=== PATIENT | male | born 1995 | race Caucasian/White ===

== ENCOUNTER 2018-11-21 00:54 | Emergency (ER) | payer SELFPAY ==
[2018-11-21 00:54] VITALS: BMI 20.1
[2018-11-21] MEDS ORDERED: cefTRIAXone (Rocephin) 250 mg Inj IM STA (01:32)
--- NOTE | 2018-11-21 01:47 | ED PDOC ---
Arrival/HPI - General Chief Complaint: Male Genitourinary Time Seen by Provider: 11/21/18 01:00 Historian: Patient - History of Present Illness Narrative History of Present Illness (Text): 11/21/18 03:13 23-year-old male presents today with penile discharge. Patient states he noticed a white discharge coming from the penis and in his underwear. Patient admits history of unprotected sex. He denies chest pain or shortness of breath. No abdominal pain. No testicular pain. He denies dysuria. No fevers or chills. No other complaints Past Medical History - Provider Review Nursing Documentation Reviewed: Yes - Travel History Have you recently traveled outside [place] w/in the past 3 mons?: No - Past History Past History: No Previous - Infectious Disease Hx of Infectious Diseases: None - Tetanus Immunization Tetanus Immunization: Up to Date - Psychiatric Hx Substance Use: No - Past Surgical History Past Surgical History: No Previous - Anesthesia Hx Anesthesia: No Hx Anesthesia Reactions: No Hx Malignant Hyperthermia: No - Suicidal Assessment Feels Threatened In Home Enviroment: No Family/Social History - Physician Review Nursing Documentation Reviewed: Yes Family/Social History: Unknown Family HX Smoking Status: Never Smoked Hx Alcohol Use: No Hx Substance Use: No Hx Substance Use Treatment: No Allergies/Home Meds Allergies/Adverse Reactions: Allergies No Known Allergies Allergy (Verified 11/21/18 01:18) Home Medications: Home Meds Medication Instructions Recorded Confirmed No Known Home Med 11/21/18 11/21/18 Review of Systems - Review of Systems Constitutional: absent: Fatigue, Fevers Respiratory: absent: SOB, Cough Cardiovascular: absent: Chest Pain, Palpitations Gastrointestinal: absent: Abdominal Pain, Nausea, Vomiting Genitourinary Male: Other (Penile discharge). absent: Dysuria, Frequency, Hematuria Musculoskeletal: absent: Arthralgias, Back Pain, Neck Pain Skin: absent: Rash, Pruritis Neurological: absent: Headache, Dizziness Psychiatric: absent: Anxiety, Depression Physical Exam Vital Signs Reviewed: Yes Temperature: Afebrile Blood Pressure: Normal Pulse: Regular Respiratory Rate: Normal Appearance: Positive for: Well-Appearing, Non-Toxic, Comfortable Pain Distress: None Mental Status: Positive for: Alert and Oriented X 3 - Systems Exam Head: Present: Atraumatic Mouth: Present: Moist Mucous Membranes Neck: Present: Normal Range of Motion Respiratory/Chest: Present: Clear to Auscultation Cardiovascular: Present: Regular Rate and Rhythm Abdomen: No: Tenderness, Distention, Rebound, Guarding Genitourinary Male: Present: Normal External Genitalia, Circumcised Penis, Penile Discharge (White discharge noted), Other (Chaperoned by [employer] Cornelio). No: Lesions, Testicle Tenderness, Penile Swelling, Masses, Erythema, Testicle Swelling Back: Present: Normal Inspection Upper Extremity: Present: Normal ROM Lower Extremity: Present: Normal ROM Neurological: Present: GCS=15, Speech Normal Skin: Present: Warm, Dry, Normal Color. No: Rashes Psychiatric: Present: Alert, Oriented x 3 Medical Decision Making ED Course and Treatment: 11/21/18 03:14 Patient is nontoxic well-appearing in no distress with stable vital signs Ceftriaxone 250 mg IM Zithromax 1 g p.o. given Gonorrhea and Chlamydia cultures are pending. Advised patient to refrain from sex for 10 days followup with the primary care physician within the next 2 days or return if symptoms worsen persist or if new symptoms develop. Patient eloped from the emergency room Impression: Urethritis ELOPED - Medication Orders Current Medication Orders: Discontinued Medications Azithromycin (Zithromax) 1,000 mg PO STAT STA; Protocol Stop: 11/21/18 01:33 Ceftriaxone Sodium (Rocephin) 250 mg IM STAT STA; Protocol Stop: 11/21/18 01:33 Disposition/Present on Arrival - Present on Arrival Any Indicators Present on Arrival: No History of DVT/PE: No History of Uncontrolled Diabetes: No Urinary Catheter: No History of Decub. Ulcer: No History Surgical Site Infection Following: None - Disposition Have Diagnosis and Disposition been Completed?: Yes Diagnosis: Penile discharge Disposition: ELOPEMENT - ER ONLY Disposition Time: 01:47 Patient Plan: Other (ELOPED) Patient Problems: Current Active Problems Problem Status Onset Penile discharge Acute Condition: UNKNOWN Forms: [employer] (Kosovan)
[2018-11-21 01:57] VITALS: BP 109/65; PULSE 64; RESP 18; TEMP 98.1; O2SAT 97
== END 2018-11-21 02:09 | disposition left against medical advice (07) ==
LOC: ED 00:54
DX: R36.9 Urethral discharge, unspecified (principal)
CPT/HCPCS: 87491; 87591; 96372; 99283; J0696